=== PATIENT | female | born 1995 | race Caucasian/White ===

== ENCOUNTER → 2018-07-19 09:03 | Outpatient (CLI) | payer OTHER, SELFPAY ==
--- NOTE | 2018-07-19 | ASPOS_PTH ---
PATIENT: LONDON RATLIFF LOC: [facility] U#:[id number] AGE/SX: 30/F ROOM: RE07/19/[address]: Dr. Magdiel Ignacio MD : 1995 BED: DIS: SPEC #: [id number] RECD: 07/19/18 13:22 STATUS: ADIEN CHRISTELLE #: [id number] TONIA: 07/19/18 00:[address]: Magdiel Ignacio DEPT: CYTOLOGY RECD BY: Javi Grier ENTERED: 07/19/18 13:22 SP TYPE: ASP HERE OTHR DR: Erin Guardado DO Procedures: Surgery Specimen Level IV Cytology Other Fine Needle Asp on Site HEADER OPERATION: FNA right upper neck/angle of jaw mass PRE-OP DIAGNOSIS: Right upper neck/angle of jaw mass TISSUE SUBMITTED: FNA right upper neck/angle of jaw mass, smears and fluid for cytology and cell block DIAGNOSIS CYTOLOGY Fine needle aspiration, right upper neck/angle of jaw mass (smears and cell block): Consistent with benign lymphoepithelial cyst. AM:kalia 07/20/18 COMMENT The specimen is evaluated at the time of FNA by Dr. Sinha. 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 The differential diagnosis includes a Warthin?s tumor and benign salivary gland cyst inflamed and with oncocytic change. CYTOLOGY STUDY Slides are reviewed. CYTOLOGY GROSS Received is 0.1 ml of mucoid rodriguez fluid labeled with the patient's name, and designated right upper neck/angle of jaw mass. Four imprints and three paps are made from the submitted fluid and the rest is added to CytoLyt for cell block preparation. Submitted for cytology study. / AM:kalia 07/19/18 TC:5 CPT: 62466, 62030, 59619, 02225
== END ==
PROVIDERS: Family Provider Family Medicine; PCP Family Medicine; Visit Provider Otolaryngology
DX: R22.1 Localized swelling, mass and lump, neck (principal)
CPT/HCPCS: 10021; 88161; 88305

== ENCOUNTER → 2018-07-31 07:42 | Outpatient (CLI) | payer OTHER, SELFPAY ==
--- NOTE | 2018-07-31 07:45 | CT_ITS ---
STUDY: CT SOFT TISSUE NECK WITH CONTRAST REASON FOR EXAM: Female, 23 years old. Neck mass below right ear RADIATION DOSAGE (If Supplied By Facility): CTDIvol = ( 14.24 ) mGy, DLP = ( 391.10 ) mGycm TECHNIQUE: The patient was scanned in a multi-detector CT scanner. High resolution transaxial imaging was performed following intravenous administration of 100 ml of Isovue 300 contrast material. Sagittal and coronal images were reconstructed. Individualized dose optimization techniques were used for this CT. COMPARISON: None. FINDINGS: There is a hyperdense mass of the right parotid gland measuring 1.7 x 1.4 x 1.4 cm. 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 Normal bilateral parapharyngeal spaces. Normal bilateral carotid spaces. Normal bilateral sublingual and submandibular glands and spaces. Normal visualized nasopharynx. Normal retropharyngeal space. Normal perivertebral space. Normal visualized bilateral faucial tonsils. The visualized tongue, tongue base and oropharynx are normal. The visualized cervical lymph nodes (levels I-) are within normal size limits, and maintain normal morphology. There is no abnormal contrast enhancement. Normal epiglottis, bilateral vallecula and hypopharynx. The pre-epiglottic and paraglottic adipose spaces are normal. Normal visualized bilateral piriform sinuses, aryepiglottic folds, vocal cords, and arytenoid-cricoid articulations. Normal subglottic trachea. Normal bilateral lobes of the thyroid gland. Normal visualized pulmonary apices. There is a polypoid filling defect of the right maxillary sinus. Normal visualized cervical spine. CT/Soft Tissue Neck WITH Contrast IMPRESSION: Hyperdense mass of the right parotid gland underlying the skin marker measuring 1.7 x 1.4 x 1.4 cm. 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 MRI may be helpful for further evaluation if clinically indicated. Electronically Signed: Flo Greenwood MD at 17:52 EDT , Service support ,
== END ==
PROVIDERS: Family Provider Family Medicine; PCP Family Medicine; Visit Provider Otolaryngology
DX: R22.1 Localized swelling, mass and lump, neck (principal)
CPT/HCPCS: 70491; Q9967